=== PATIENT | male | born 1970 | race Caucasian/White ===

== ENCOUNTER 2022-05-13 15:24 | Emergency (ER) | payer OTHER ==
[~2022-05-13] VITALS: Ht 182.9 cm; Wt 72.6 kg
[2022-05-13 16:04] LABS: Source, Urine Clean Catch
[2022-05-13 16:16] LABS: Appearance, Urine Hazy (Clear); Bilirubin, Urine Neg (Neg); Blood, Urine 3+ (Neg); Glucose Qualitative, Urine Neg (Neg); Ketones, Urine Neg (Neg); Leukocyte Esterase, Urine 3+ (Neg); Nitrite, Urine Neg (Neg); Protein, Urine 1+ (Neg); Urobilinogen, Urine NORM (Normal); pH, Urine 6.5 (5.0-8.0)
[2022-05-13 16:53] LABS: Color, Urine Pale Yellow (P-Yellow); White Blood Cells, Urine 50-100 /hpf (0-5)
[2022-05-13 16:54] LABS: Bacteria Many /hpf; Squamous Epithelial Cells Rare /hpf (Few)
[2022-05-13] MEDS ORDERED: Bactrim Ds Tab1 EACH PO (17:02)
== END 2022-05-13 17:07 | disposition home or self-care (01) ==
LOC: ER 15:24
PROVIDERS: Physician Assistant
DX: N39.0 Urinary tract infection, site not specified (principal)
CPT/HCPCS: 81001; 87077; 87086; 87186; 99283

== ENCOUNTER 2022-11-11 16:47 | Emergency (ER) | payer OTHER ==
[~2022-11-11] VITALS: Ht 182.9 cm; Wt 77.1 kg
[~2022-11-11 16:47] MED LIST: Bactrim Ds Tab1 EACH PO
[2022-11-11 18:18] LABS: Source, Urine Clean Catch
[2022-11-11 18:29] LABS: Bilirubin, Urine Neg (Neg); Blood, Urine Neg (Neg); Glucose Qualitative, Urine Neg (Neg); Ketones, Urine Neg (Neg); Leukocyte Esterase, Urine Neg (Neg); Nitrite, Urine Neg (Neg); Protein, Urine Neg (Neg); Specific Gravity, Urine 1.015 (1.003-1.022); Urobilinogen, Urine NORM (Normal)
[2022-11-11 18:49] LABS: Appearance, Urine Clear (Clear); Color, Urine Pale Yellow (P-Yellow)
[2022-11-11 20:10] VITALS: BP 134/81
[2022-11-11] MEDS ORDERED: ONDA4ODT MM (22:04)
== END 2022-11-11 22:19 ==
LOC: ER 16:47
PROVIDERS: Physician Assistant
DX: R11.0 Nausea (principal); M54.6 Pain in thoracic spine; R10.9 Unspecified abdominal pain
CPT/HCPCS: 81003; 99284; A9270

== ENCOUNTER → 2022-11-23 | Outpatient (CLI) | payer OTHER ==
[~2022-11-23] MED LIST changes: +ONDA4ODT MM
== END | disposition home or self-care (01) ==
LOC: LAB SHORT 13:30 → LAB 13:30
DX: M54.6 Pain in thoracic spine (principal); R82.81 Pyuria
CPT/HCPCS: 87086

== ENCOUNTER → 2022-12-13 | Outpatient (CLI) | payer OTHER | LOC: LAB SHORT 14:42 → LAB 14:42 | DX: R10.84 Generalized abdominal pain (principal) | CPT/HCPCS: 87177; 87209 ==

== ENCOUNTER 2023-01-17 16:11 | Emergency (ER) | payer OTHER ==
[~2023-01-17] VITALS: Ht 182.9 cm; Wt 72.6 kg
[2023-01-17 16:16] VITALS: BP 144/66
[2023-01-17] MEDS ORDERED: CEPH500 PO (18:23)
[2023-01-17] MEDS ORDERED: Norco 5-325 Ta1 EACH PO (19:22)
== END 2023-01-17 19:38 | disposition home or self-care (01) ==
LOC: ER 16:11
DX: S11.83XA Puncture wound without foreign body of other specified part of neck, initial encounter (principal); V86.96XA Unspecified occupant of dirt bike or motor/cross bike injured in nontraffic accident, initial encounter
CPT/HCPCS: 70491; 71046; 96365; 96375; 99284-25; A9270; J0295; J1885; Q9967

== ENCOUNTER → 2024-01-25 | Outpatient (CLI) | payer OTHER ==
[~2024-01-25] MED LIST changes: +CEPH500 PO; +Norco 5-325 Ta1 EACH PO
[2024-01-25 17:49] LABS: Source, Urine Voided
[2024-01-25 18:53] LABS: Appearance, Urine Hazy (Clear); Bilirubin, Urine Neg (Neg); Blood, Urine 2+ (Neg); Color, Urine Yellow (P-Yellow); Glucose Qualitative, Urine Neg (Neg); Ketones, Urine Neg (Neg); Leukocyte Esterase, Urine 3+ (Neg); Nitrite, Urine Neg (Neg); Protein, Urine Neg (Neg); Urobilinogen, Urine NORM (Normal)
[2024-01-25 19:08] LABS: Bacteria Many /hpf; Red Blood Cells, Urine 0-2 /hpf (0-2); Squamous Epithelial Cells Not Seen /hpf (Few); White Blood Cells, Urine 50-100 /hpf (0-5)
== END | disposition home or self-care (01) ==
LOC: LAB 17:46 → LAB SHORT 17:46
PROVIDERS: Registered Nurse
DX: N30.01 Acute cystitis with hematuria (principal); R35.0 Frequency of micturition; R39.15 Urgency of urination
CPT/HCPCS: 81001; 87077; 87086; 87186